=== PATIENT | female | born 1990 | race Two or more races ===

== ENCOUNTER 2022-09-11 16:44 | Emergency (ER) | payer OTHER ==
[~2022-09-11] VITALS: Ht 167.6 cm; Wt 80.3 kg
[2022-09-11] MEDS ORDERED: TUSNEL LIQUID178 ML PO (17:32)
[2022-09-11] MEDS ORDERED: PROAIR RESPICL90 MCG IH (17:32)
[2022-09-11] MEDS ORDERED: CLEOCIN HCL300 MG PO (17:32)
[2022-09-11] MEDS ORDERED: DOLOGEN CAPLET1 EACH PO (17:32)
[2022-09-11] MEDS ORDERED: MEDROLPACK PO (17:36)
== END 2022-09-11 18:00 | disposition home or self-care (01) ==
LOC: ER 16:44
DX: J06.9 Acute upper respiratory infection, unspecified (principal); Z88.0 Allergy status to penicillin; Z88.8 Allergy status to other drugs, medicaments and biological substances